=== PATIENT | male | born 1990 | race American Indian/Alaskan Native ===

== ENCOUNTER 2023-06-22 07:59 | Emergency (ER) | payer SELFPAY | END 2023-06-22 08:31 | disposition home or self-care (01) | LOC: MW.ED 07:59 | DX: L03.115 Cellulitis of right lower limb (principal) | CPT/HCPCS: 99283 ==

== ENCOUNTER 2023-06-23 15:49 | Observation (INO) | payer SELFPAY ==
[2023-06-23] MEDS ORDERED: Sodium Chloride 0.9% 1,000 ML IV ONE (18:59)
[2023-06-23] MEDS ORDERED: Clindamycin Phosphate in D5W 600 MG in Premix Bag 1 BAG IV ONE ×2 (18:59)
[2023-06-23 20:00] LABS: BASOPHILS PERCENT AUTO 0.1 % (0.0-1.5); EOSINOPHILS ABSOLUTE AUTO 0.1 K/uL (0.0-0.7); EOSINOPHILS PERCENT AUTO 0.8 % (0.0-7.0); HEMATOCRIT 40.6 % (38.0-50.0); HEMOGLOBIN 14.6 g/dL (13.0-17.0); LYMPHOCYTES ABSOLUTE AUTO 1.7 K/uL (0.6-2.4); LYMPHOCYTES PERCENT AUTO 9.8 % (16.0-40.0); MEAN CORPUSCULAR HEMOGLOBIN 31.7 pg (27.0-32.0); MEAN CORPUSCULAR VOLUME 88.1 fL (80.0-98.0); MONOCYTES ABSOLUTE AUTO 1.5 K/uL (0.0-0.8); MONOCYTES PERCENT AUTO 9.1 % (0.0-15.0); NEUTROPHILS ABSOLUTE AUTO 13.5 K/uL (1.4-5.7); NEUTROPHILS PERCENT AUTO 80.2 % (48.0-80.0); NRBC ABSOLUTE 0 K/uL; PLATELET COUNT,PLT 314 K/uL (150-400); RED BLOOD CELL COUNT 4.61 M/uL (4.50-5.90); WHITE BLOOD CELL COUNT,WBC 16.86 K/uL (4.0-11.0)
[2023-06-23 20:13] LABS: LACTIC ACID 1.5 mmol/L (0.4-2.0)
[2023-06-23 20:16] LABS: ALBUMIN 4.1 g/dL (3.4-5.0); BILIRUBIN TOTAL 0.6 mg/dL (0.2-1.0); CARBON DIOXIDE,CO2 28.1 mmol/L (21.0-32.0); CREATININE 1.1 mg/dL (0.8-1.3); EST CRCL DRUG DOSING (CG) 107.78 mL/min; POTASSIUM,K 3.3 mmol/L (3.5-5.1); PROTEIN TOTAL,TP 8.3 g/dL (6.4-8.2)
[2023-06-23 20:19] LABS: C-REACTIVE PROTEIN 14.1 mg/dL (0.00-0.90)
[2023-06-23] MEDS ORDERED: VANCOmycin 1.75 GM/350 ML 1.75 GM in Premix Bag 1 BAG IV ONE (20:45)
[2023-06-24] MEDS ORDERED: Ondansetron 4 MG/2 ML SDV IVPUSH PRN (00:31)
[2023-06-24] MEDS ORDERED: Ibuprofen 400 MG Tab PO PRN (00:31)
[2023-06-24] MEDS ORDERED: Acetaminophen 325 MG Tab PO PRN (00:31)
[2023-06-24] MEDS ORDERED: Potassium Chloride 20 MEQ Tab.ER PO ONE (00:31)
[2023-06-24] MEDS: Enoxaparin 40 MG/0.4 ML Syringe SUBCUT SCH (01:05)
[2023-06-24 05:59] LABS: BASOPHILS PERCENT AUTO 0.2 % (0.0-1.5); EOSINOPHILS ABSOLUTE AUTO 0.2 K/uL (0.0-0.7); EOSINOPHILS PERCENT AUTO 1.8 % (0.0-7.0); HEMATOCRIT 36.9 % (38.0-50.0); HEMOGLOBIN 12.6 g/dL (13.0-17.0); LYMPHOCYTES ABSOLUTE AUTO 1.6 K/uL (0.6-2.4); LYMPHOCYTES PERCENT AUTO 12.8 % (16.0-40.0); MEAN CORPUSCULAR HEMOGLOBIN 30.1 pg (27.0-32.0); MEAN CORPUSCULAR HGB CONC 34.1 g/dL (31.0-37.0); MEAN CORPUSCULAR VOLUME 88.3 fL (80.0-98.0); MONOCYTES PERCENT AUTO 7.8 % (0.0-15.0); NEUTROPHILS ABSOLUTE AUTO 9.7 K/uL (1.4-5.7); NEUTROPHILS PERCENT AUTO 77.4 % (48.0-80.0); NRBC ABSOLUTE 0 K/uL; PLATELET COUNT,PLT 285 K/uL (150-400); RED BLOOD CELL COUNT 4.18 M/uL (4.50-5.90); WHITE BLOOD CELL COUNT,WBC 12.56 K/uL (4.0-11.0)
[2023-06-24 06:44] LABS: CALCIUM 8.3 mg/dL (8.5-10.1); CARBON DIOXIDE,CO2 27.7 mmol/L (21.0-32.0); EST CRCL DRUG DOSING (CG) 118.56 mL/min; POTASSIUM,K 3.8 mmol/L (3.5-5.1)
[2023-06-24] MEDS: oxyCODONE 5 MG Tab PO PRN ×2 (09:08→16:28)
[2023-06-24] MEDS ORDERED: Naloxone 0.4 MG/ML SDV IVPUSH PRN (13:01)
[2023-06-24] MEDS: Morphine 2 MG/ML SYRINGE IVPUSH PRN ×2 (13:34→18:55)
[2023-06-25] MEDS: Morphine 2 MG/ML SYRINGE IVPUSH PRN ×2 (00:21→07:13)
[2023-06-25] MEDS: Enoxaparin 40 MG/0.4 ML Syringe SUBCUT SCH (00:22)
[2023-06-25 06:43] LABS: BASOPHILS PERCENT AUTO 0.1 % (0.0-1.5); EOSINOPHILS ABSOLUTE AUTO 0.3 K/uL (0.0-0.7); EOSINOPHILS PERCENT AUTO 3.2 % (0.0-7.0); HEMATOCRIT 37.7 % (38.0-50.0); HEMOGLOBIN 12.7 g/dL (13.0-17.0); LYMPHOCYTES ABSOLUTE AUTO 1.8 K/uL (0.6-2.4); MEAN CORPUSCULAR HEMOGLOBIN 30.4 pg (27.0-32.0); MEAN CORPUSCULAR HGB CONC 33.7 g/dL (31.0-37.0); MEAN CORPUSCULAR VOLUME 90.2 fL (80.0-98.0); MONOCYTES PERCENT AUTO 10.5 % (0.0-15.0); NEUTROPHILS ABSOLUTE AUTO 6.3 K/uL (1.4-5.7); NEUTROPHILS PERCENT AUTO 67.2 % (48.0-80.0); NRBC ABSOLUTE 0 K/uL; PLATELET COUNT,PLT 276 K/uL (150-400); RED BLOOD CELL COUNT 4.18 M/uL (4.50-5.90); WHITE BLOOD CELL COUNT,WBC 9.33 K/uL (4.0-11.0)
[2023-06-25 07:27] LABS: CALCIUM 8.5 mg/dL (8.5-10.1); CARBON DIOXIDE,CO2 29.1 mmol/L (21.0-32.0); CREATININE 0.9 mg/dL (0.8-1.3); EST CRCL DRUG DOSING (CG) 131.73 mL/min
[2023-06-25] MEDS: oxyCODONE 5 MG Tab PO PRN (10:32)
== END 2023-06-25 13:40 | disposition home or self-care (01) ==
LOC: MW.ED 15:49 → MW.MS 20:31
PROVIDERS: ADMIT Internal Medicine; ATTEND Internal Medicine
DX: L03.115 Cellulitis of right lower limb (principal); Z79.899 Other long term (current) drug therapy
CPT/HCPCS: 36415; 80048; 80053; 80202; 83605; 85025; 86140; 87040; 96361; 96365; 96366; 96367; 96372; 96375; 96376; 99284; A9270; G0378; J1650; J2270; J3370; J3490; J7030; J7050